=== PATIENT | male | born 1965 | race Caucasian/White ===

== ENCOUNTER 2021-03-14 08:31 | Emergency (ER) | payer MEDICAID, OTHER ==
[~2021-03-14] VITALS: Ht 177.8 cm; Wt 84.3 kg
[~2021-03-14 08:31] MED LIST: FLO0.4C PO; LISI-644 PO; PROM12.512 PO; TRIA1CAP6 PO
[2021-03-14] MEDS ORDERED: HYDROcodone/acetaminophen 5mg/325mg tablet PO ONE (09:00)
[2021-03-14] MEDS ORDERED: ketorolac tromethamine 15mg/ml inj. IM ONE (09:00)
[2021-03-14] MEDS ORDERED: ondansetron 4mg rapidly disintigrating tab PO ONE (09:00)
[2021-03-14] MEDS ORDERED: CYCL-1 PO (09:02)
[2021-03-14] MEDS ORDERED: HYDR-3965 PO (09:02)
[2021-03-14] MEDS ORDERED: ONDA4TAB6 PO (09:02)
[2021-03-14 09:25] VITALS: BP 124/81
== END 2021-03-14 09:26 | disposition home or self-care (01) ==
LOC: ER 08:32
DX: S32.010A Wedge compression fracture of first lumbar vertebra, initial encounter for closed fracture (principal); S32.020A Wedge compression fracture of second lumbar vertebra, initial encounter for closed fracture; G89.29 Other chronic pain; Z98.890 Other specified postprocedural states; Z72.89 Other problems related to lifestyle; Z79.899 Other long term (current) drug therapy; Z91.030 Bee allergy status; X58.XXXA Exposure to other specified factors, initial encounter; Y93.89 Activity, other specified; Y92.89 Other specified places as the place of occurrence of the external cause; Y99.8 Other external cause status
CPT/HCPCS: 96372; 99283; J1885

== ENCOUNTER 2022-10-03 08:37 | Day surgery (SDC) | payer MEDICAID ==
[~2022-10-03] VITALS: Ht 177.8 cm; Wt 83.2 kg
[~2022-10-03 08:37] MED LIST changes: +CYCL-1 PO; +ONDA4TAB6 PO; -TRIA1CAP6 PO; +TRIA1CAP88 PO
[2022-10-03] MEDS ORDERED: normal saline 1000ml 1,000 ML IV PRN (08:50)
[2022-10-03 09:01] VITALS: BP 149/99
[2022-10-03 09:35] LABS: BASOPHILS # (AUTO) 0.1 X10'3 (0-0.2); BASOPHILS % (AUTO) 1.1 % (0-1); EOSINOPHILS # (AUTO) 0.3 X10'3 (0-0.9); HEMATOCRIT 43.8 % (42.0-52.0); HEMOGLOBIN 14.7 g/dl (14.0-17.9); LYMPHOCYTES # (AUTO) 1.1 X10'3 (1.1-4.8); LYMPHOCYTES % (AUTO) 21.1 % (21-51); MEAN CORPUSCULAR HEMOGLOBIN 32.7 PG (27.0-31.0); MEAN CORPUSCULAR HGB CONC 33.5 g/dL (33.0-36.5); MEAN CORPUSCULAR VOLUME 97.6 FL (78-98); MEAN PLATELET VOLUME 9.1 FL (7.4-10.4); MONOCYTES # (AUTO) 0.7 X10'3 (0-0.9); MONOCYTES % (AUTO) 12.4 % (2-12); NEUTROPHILS # (AUTO) 3.2 X10'3 (1.8-7.7); NEUTROPHILS % (AUTO) 60.4 % (42-75); PLATELET COUNT 128 X10'3 (140-440); RED BLOOD COUNT 4.49 X10'6 (4.70-6.10); RED CELL DISTRIBUTION WIDTH 13.2 % (11.5-14.5); WHITE BLOOD COUNT 5.3 X10'3 (4.5-11.0)
[2022-10-03] MEDS ORDERED: CLON-568 PO (09:49)
[2022-10-03] MEDS ORDERED: DIPH-423 PO (09:49)
[2022-10-03] MEDS ORDERED: LURA80TA2 PO (09:49)
[2022-10-03] MEDS ORDERED: LIDOcaine 1% 30ml preserv. free vial ONE (10:16)
[2022-10-03] MEDS ORDERED: fentaNYL/PF 50MCG/1 ML 2ML syringe ONE ×2 (10:16→11:21)
[2022-10-03] MEDS ORDERED: midazolam 1 mg/ML 2ml injection ONE ×2 (10:16→11:42)
[2022-10-03] MEDS ORDERED: cefazolin/dext.iso 2gm/100ml 100 ML IV ONE (11:00)
[2022-10-03] MEDS ORDERED: diphenhydrAMINE 50 mg/ml inj ONE (11:32)
[2022-10-03] MEDS ORDERED: HYDROcodone/acetaminophen 5mg/325mg tablet PO PRN (11:50)
[2022-10-03 11:57] VITALS: BP 155/97
[2022-10-03 12:12] VITALS: BP 135/84
[2022-10-03 12:27] VITALS: BP 121/78
[2022-10-03 12:42] VITALS: BP 134/94
== END 2022-10-03 12:56 | disposition home or self-care (01) ==
LOC: SSTAY O 08:37
PROVIDERS: ATTEND Radiology Vascular & Interventional Radiology
DX: M54.9 Dorsalgia, unspecified (principal); F10.10 Alcohol abuse, uncomplicated; Z91.030 Bee allergy status; Z88.8 Allergy status to other drugs, medicaments and biological substances; Z79.899 Other long term (current) drug therapy; Z98.890 Other specified postprocedural states
CPT/HCPCS: 20225; 36415; 77002; 85025; 85610; 87070; 99152; 99153; J1200; J2250; J3010; J3490; J7030; A4620